=== PATIENT | male | born 1985 | race Two or more races ===

== ENCOUNTER 2021-11-30 14:04 | Emergency (ER) | payer MEDICAID, OTHER ==
[~2021-11-30] VITALS: Ht 175.3 cm; Wt 68.1 kg
[2021-11-30 15:23] VITALS: BP 121/79
[2021-11-30] MEDS ORDERED: METH4PAK PO (15:44)
[2021-11-30] MEDS ORDERED: methylPREDNISolone SOD SUCC 125 MG/2 ML VL IM ONE (15:45)
== END 2021-11-30 16:03 | disposition home or self-care (01) ==
LOC: ER 14:04
DX: L20.9 Atopic dermatitis, unspecified (principal); Z76.0 Encounter for issue of repeat prescription
CPT/HCPCS: 96372; 99283; J2930